=== PATIENT | male | born 1990 | race Caucasian/White ===

== ENCOUNTER 2016-09-17 13:55 | Emergency (ER) | payer OTHER ==
--- NOTE | 2016-09-17 14:30 | EDDOCDS ---
Physician Documentation [facility] Name: Km Reinoso Age: 26 yrs Sex: Male : 1990 Arrival Date: 09/17/2016 Time: 13:55 Bed I10 / 23 Private MD: Megan Panchal J Disposition: 09/17/16 14:21 Discharged to Home/Self Care. Impression: Dental caries, Cracked tooth. - Condition is Stable. - Discharge Instructions: Dental Pain. - Prescriptions for [place] 5- 325 mg Oral Tablet - take 1 tablet by ORAL route every 6 hours As needed MDD: 4 tabs; 20 tablet. - Medication Reconciliation, Local Pharmacy Hours form. - Follow up: Your, Dentist; When: As soon as possible; Reason: Continuance of care. - Problem is an acute exacerbation. - Symptoms are unchanged. Historical: - Allergies: Amoxicillin; PENICILLINS; - Home Meds: 1. Triumeq 600-50-300 mg oral tab 1 tab once daily for HIV Infection - PMHx: HIV; - PSHx: none; - Social history: Smoking status: Patient uses tobacco products, current every day smoker. No barriers to communication noted, The patient speaks fluent Nigerien, Speaks appropriately for age. - Family history: Not pertinent. - : The pt / caregiver states he / she is not on anticoagulants. Home medication list is obtained from the patient. - Exposure Risk Screening:: None identified. Vital Signs: 09/17 13:57 BP 122 / 78; Pulse 62; Resp 18 S; Temp 97.4(O); Pulse Ox 100% on R/A; Weight 54.43 kg / gr2 120 lbs (R); Height 5 ft. 11 in. (180.34 cm) (R); Pain 8/10; 13:57 Body Mass Index 16.74 (54.43 kg, 180.34 cm) gr2 MDM: 14:19 Financial registration complete. lg Signatures: Mary Kay Bolanos, RN RN Miroslvaa Padilla, Reg Reg Erwin Boateng, WIRE STRAIGHTENING MACHINE OPERATOR WIRE STRAIGHTENING MACHINE OPERATOR Zayra Loza RN RN pml MTDD
--- NOTE | 2016-09-17 14:30 | EDDOCDS ---
Nurse's Notes [facility] Name: Km Reinoso Age: 26 yrs Sex: Male : 1990 Arrival Date: 09/17/2016 Time: 13:55 Bed I10 / 23 Private MD: Megan Panchal J Diagnosis: Dental caries;Cracked tooth Presentation: 09/17 14:01 Presenting complaint: Patient states: right upper tooth broke during the night. cant srm eat. Adult Sepsis Screening: The patient does not have new or worsening altered mentation. Patient's respiratory rate is less than 22. Systolic blood pressure is greater than 100. Patient has a qSOFA score of 0- Negative Sepsis Screen. Suicide/Homicide risk assessment- the patient denies having any suicidal and/or homicidal ideations and does not present with any other emotional, behavioral or mental health complaints. Status: Patient is not a customer service analyst or dependent. Transition of care: patient was not received from another setting of care. 14:01 Acuity: ROSA Level 5 [facility] 14:01 Method Of Arrival: Walkin/Carried/Asstd [facility] Triage Assessment: 14:02 General: Appears in no apparent distress, Behavior is appropriate for age, cooperative. srm Pain: Pain currently is 10 out of 10 on a pain scale. HIV screening NA for this visit Offered previously. EENT: Reports pain right upper back tooth pain. Historical: - Allergies: Amoxicillin; PENICILLINS; - Home Meds: 1. Triumeq 600-50-300 mg oral tab 1 tab once daily for HIV Infection - PMHx: HIV; - PSHx: none; - Social history: Smoking status: Patient uses tobacco products, current every day smoker. No barriers to communication noted, The patient speaks fluent Malian, Speaks appropriately for age. - Family history: Not pertinent. - : The pt / caregiver states he / she is not on anticoagulants. Home medication list is obtained from the patient. - Exposure Risk Screening:: None identified. Screenin:27 Screening information is obtained from the patient. Fall risk: No risks identified. pml Assistance ADL's: requires no assistance with activities of daily living. Abuse/DV Screen: The patient / caregiver reports he/she is: not in a situation that causes fear, pain or injury. Nutritional screening: No deficits noted. Advance Directives: Currently, there is no health care proxy. home support is adequate. Assessment: 14:27 General: Appears in no apparent distress, comfortable, Behavior is appropriate for age, pml cooperative. Pain: Location: mouth Pain currently is 10 out of 10 on a pain scale. Neurological: Level of Consciousness is awake, alert, Oriented to person, place, time. Cardiovascular: Capillary refill < 3 seconds. Respiratory: Airway is patent Respiratory pattern is regular, symmetrical. GI: Abdomen is non- distended. Derm: Skin is pink, warm & dry. Vital Signs: 13:57 BP 122 / 78; Pulse 62; Resp 18 S; Temp 97.4(O); Pulse Ox 100% on R/A; Weight 54.43 kg gr2 (R); Height 5 ft. 11 in. (180.34 cm) (R); Pain 8/10; 13:57 Body Mass Index 16.74 (54.43 kg, 180.34 cm) gr2 Vitals: 13:57 Log In Time: September 17, 2016 at 13:57. gr2 ED Course: 13:57 Patient visited by Deandre Ross. gr2 13:57 Megan Panchal is Private Physician. gr2 13:57 Patient moved to Waiting gr2 13:59 Patient visited by Deandre Ross. gr2 13:59 Patient moved to Pre RCE gr2 14:01 Triage Initiated srm 14:12 Erwin Boateng FNP is PHCP. ke 14:12 Patient visited by Erwin Boateng FNP. ke 14:12 Patient visited by Erwin Boateng FNP. ke 14:12 Patient moved to I9 / 22 jo3 14:15 Patient moved to I10 / 23 rn1 14:21 Your, Dentist is Referral Physician. ke 14:27 The patient / caregiver is instructed regarding the plan of care and ED course. Patient pml has correct armband on for positive identification. Placed in gown. Bed in low position. Call light in reach. Side rails up X2. 14:27 No IV's were initiated during this patient's visit. No procedures done that require pml assistance. Order Results: There are currently no results for this order. Outcome: 14:21 Discharge ordered by Provider. ke 14:27 Discharge Assessment: Patient awake, alert and oriented x 3. No cognitive and/or pml functional deficits noted. Patient verbalized understanding of disposition instructions. patient administered narcotics - no. The following High Risk Discharge criteria are identified: None. Discharged to home ambulatory. Condition: good Condition: stable. Discharge instructions given to patient, Instructed on discharge instructions, follow up and referral plans. medication usage, no driving heavy equipment, Demonstrated understanding of instructions, medications, Pt was receptive of discharge instructions/ teaching. Prescriptions given X 1. No special radiology studies were completed. Property sent home with patient. 14:29 Patient left the ED. pml Signatures: Mary Kay Bolanos, RN RN Erwin Ragland, Mamta Kahn RN RN jo3 Zayra Garcia RN RN Deandre León gr2 Rufus Ferrer rn1 NEAL
--- NOTE | 2016-09-19 15:30 | EDDOCDS ---
Physician Documentation [facility] Name: Km Reinoso Age: 26 yrs Sex: Male : 1990 Arrival Date: 09/17/2016 Time: 13:55 Bed I10 / 23 Private MD: Megan Panchal J Disposition: 09/17/16 14:21 Discharged to Home/Self Care. Impression: Dental caries, Cracked tooth. - Condition is Stable. - Discharge Instructions: Dental Pain. - Prescriptions for [place] 5- 325 mg Oral Tablet - take 1 tablet by ORAL route every 6 hours As needed MDD: 4 tabs; 20 tablet. - Medication Reconciliation, Local Pharmacy Hours form. - Follow up: Your, Dentist; When: As soon as possible; Reason: Continuance of care. - Problem is an acute exacerbation. - Symptoms are unchanged. Historical: - Allergies: Amoxicillin; PENICILLINS; - Home Meds: 1. Triumeq 600-50-300 mg oral tab 1 tab once daily for HIV Infection - PMHx: HIV; - PSHx: none; - Social history: Smoking status: Patient uses tobacco products, current every day smoker. No barriers to communication noted, The patient speaks fluent Norwegian, Speaks appropriately for age. - Family history: Not pertinent. - : The pt / caregiver states he / she is not on anticoagulants. Home medication list is obtained from the patient. - Exposure Risk Screening:: None identified. Vital Signs: 09/17 13:57 BP 122 / 78; Pulse 62; Resp 18 S; Temp 97.4(O); Pulse Ox 100% on R/A; Weight 54.43 kg / gr2 120 lbs (R); Height 5 ft. 11 in. (180.34 cm) (R); Pain 8/10; 13:57 Body Mass Index 16.74 (54.43 kg, 180.34 cm) gr2 MDM: 14:19 Financial registration complete. lg 14:42 [facility] Payment Agreement was scanned into [employer] and attached to record. lg 09/18 08:59 T-Sheet-- Draft Copy was scanned into Mlog and attached to record. [facility] Signatures: Mary Kay Bolanos, RN RN Miroslava Padilla, Reg Reg lg Erwin Boateng, FRENCH LECTURERZayra ThorntonRN RN Shannon Shi The chart was reviewed and I authenticate all verbal orders and agree with the evaluation and treatment provided.Attachments: 09/17 14:42 [id number] Payment Agreement lg 09/18 08:59 T-Sheet-- Draft Copy [facility] Chart Complete MTDD
--- NOTE | 2016-09-19 15:30 | EDDOCDS ---
Nurse's Notes [facility] Name: Km Reinoso Age: 26 yrs Sex: Male : 1990 Arrival Date: 09/17/2016 Time: 13:55 Bed I10 / 23 Private MD: Megan Panchal J Diagnosis: Dental caries;Cracked tooth Presentation: 09/17 14:01 Presenting complaint: Patient states: right upper tooth broke during the night. cant srm eat. Adult Sepsis Screening: The patient does not have new or worsening altered mentation. Patient's respiratory rate is less than 22. Systolic blood pressure is greater than 100. Patient has a qSOFA score of 0- Negative Sepsis Screen. Suicide/Homicide risk assessment- the patient denies having any suicidal and/or homicidal ideations and does not present with any other emotional, behavioral or mental health complaints. Status: Patient is not a emergency services dispatcher or dependent. Transition of care: patient was not received from another setting of care. 14:01 Acuity: ROSA Level 5 [facility] 14:01 Method Of Arrival: Walkin/Carried/Asstd [facility] Triage Assessment: 14:02 General: Appears in no apparent distress, Behavior is appropriate for age, cooperative. srm Pain: Pain currently is 10 out of 10 on a pain scale. HIV screening NA for this visit Offered previously. EENT: Reports pain right upper back tooth pain. Historical: - Allergies: Amoxicillin; PENICILLINS; - Home Meds: 1. Triumeq 600-50-300 mg oral tab 1 tab once daily for HIV Infection - PMHx: HIV; - PSHx: none; - Social history: Smoking status: Patient uses tobacco products, current every day smoker. No barriers to communication noted, The patient speaks fluent Lao, Speaks appropriately for age. - Family history: Not pertinent. - : The pt / caregiver states he / she is not on anticoagulants. Home medication list is obtained from the patient. - Exposure Risk Screening:: None identified. Screenin:27 Screening information is obtained from the patient. Fall risk: No risks identified. pml Assistance ADL's: requires no assistance with activities of daily living. Abuse/DV Screen: The patient / caregiver reports he/she is: not in a situation that causes fear, pain or injury. Nutritional screening: No deficits noted. Advance Directives: Currently, there is no health care proxy. home support is adequate. Assessment: 14:27 General: Appears in no apparent distress, comfortable, Behavior is appropriate for age, pml cooperative. Pain: Location: mouth Pain currently is 10 out of 10 on a pain scale. Neurological: Level of Consciousness is awake, alert, Oriented to person, place, time. Cardiovascular: Capillary refill < 3 seconds. Respiratory: Airway is patent Respiratory pattern is regular, symmetrical. GI: Abdomen is non- distended. Derm: Skin is pink, warm & dry. Vital Signs: 13:57 BP 122 / 78; Pulse 62; Resp 18 S; Temp 97.4(O); Pulse Ox 100% on R/A; Weight 54.43 kg gr2 (R); Height 5 ft. 11 in. (180.34 cm) (R); Pain 8/10; 13:57 Body Mass Index 16.74 (54.43 kg, 180.34 cm) gr2 Vitals: 13:57 Log In Time: September 17, 2016 at 13:57. gr2 ED Course: 13:57 Patient visited by Deandre Ross. gr2 13:57 Megan Panchal is Private Physician. gr2 13:57 Patient moved to Waiting gr2 13:59 Patient visited by Deandre Ross. gr2 13:59 Patient moved to Pre RCE gr2 14:01 Triage Initiated srm 14:12 Erwin Boateng FNP is PHCP. ke 14:12 Patient visited by Erwin Boateng FNP. ke 14:12 Patient visited by Erwin Boateng FNP. ke 14:12 Patient moved to I9 / 22 jo3 14:15 Patient moved to I10 / 23 rn1 14:21 Your, Dentist is Referral Physician. ke 14:27 The patient / caregiver is instructed regarding the plan of care and ED course. Patient pml has correct armband on for positive identification. Placed in gown. Bed in low position. Call light in reach. Side rails up X2. 14:27 No IV's were initiated during this patient's visit. No procedures done that require pml assistance. 14:40 Patient name changed from Km\S\\S\Kipke\S\ to Km\S\ \S\Kipke. EDMS 14:42 [facility] Payment Agreement was scanned into [employer] and attached to record. 09/18 08:59 T-Sheet-- Draft Copy was scanned into [employer] and attached to record. [facility] Order Results: There are currently no results for this order. Outcome: 09/17 14:21 Discharge ordered by Provider. 14:27 Discharge Assessment: Patient awake, alert and oriented x 3. No cognitive and/or pml functional deficits noted. Patient verbalized understanding of disposition instructions. patient administered narcotics - no. The following High Risk Discharge criteria are identified: None. Discharged to home ambulatory. Condition: good Condition: stable. Discharge instructions given to patient, Instructed on discharge instructions, follow up and referral plans. medication usage, no driving heavy equipment, Demonstrated understanding of instructions, medications, Pt was receptive of discharge instructions/ teaching. Prescriptions given X 1. No special radiology studies were completed. Property sent home with patient. 14:29 Patient left the ED. pml Signatures: Dispatcher [employer] EDVT Mary Kay Bolanos, RN RN Miroslava Padilla, Anton Reg Erwin Boateng, BOW MAKER MACHINE TENDER BOW MAKER MACHINE TENDER Mamta Benosn RN RN Zayra CruzRN RN Deandre León Robert rn1 Shannon Santo Chart Complete MTDYun
--- NOTE | 2016-09-19 15:30 | EDDOCDS ---
Physician Documentation [facility] Name: Km Reinoso Age: 26 yrs Sex: Male : 1990 Arrival Date: 09/17/2016 Time: 13:55 Bed I10 / 23 Private MD: Megan Panchal J Disposition: 09/17/16 14:21 Discharged to Home/Self Care. Impression: Dental caries, Cracked tooth. - Condition is Stable. - Discharge Instructions: Dental Pain. - Prescriptions for [place] 5- 325 mg Oral Tablet - take 1 tablet by ORAL route every 6 hours As needed MDD: 4 tabs; 20 tablet. - Medication Reconciliation, Local Pharmacy Hours form. - Follow up: Your, Dentist; When: As soon as possible; Reason: Continuance of care. - Problem is an acute exacerbation. - Symptoms are unchanged. Historical: - Allergies: Amoxicillin; PENICILLINS; - Home Meds: 1. Triumeq 600-50-300 mg oral tab 1 tab once daily for HIV Infection - PMHx: HIV; - PSHx: none; - Social history: Smoking status: Patient uses tobacco products, current every day smoker. No barriers to communication noted, The patient speaks fluent Monegasque, Speaks appropriately for age. - Family history: Not pertinent. - : The pt / caregiver states he / she is not on anticoagulants. Home medication list is obtained from the patient. - Exposure Risk Screening:: None identified. Vital Signs: 09/17 13:57 BP 122 / 78; Pulse 62; Resp 18 S; Temp 97.4(O); Pulse Ox 100% on R/A; Weight 54.43 kg / gr2 120 lbs (R); Height 5 ft. 11 in. (180.34 cm) (R); Pain 8/10; 13:57 Body Mass Index 16.74 (54.43 kg, 180.34 cm) gr2 MDM: 14:19 Financial registration complete. lg 14:42 [facility] Payment Agreement was scanned into [employer] and attached to record. lg 09/18 08:59 T-Sheet-- Draft Copy was scanned into [employer] and attached to record. [facility] Signatures: Mary Kay Bolanos, RN RN Miroslava Padilla, Reg Reg lg Erwin Boateng, MANAGER ANALYTICALZayra ThorntonRN RN Shannon Shi The chart was reviewed and I authenticate all verbal orders and agree with the evaluation and treatment provided.Attachments: 09/17 14:42 [facility] Payment Agreement lg 09/18 08:59 T-Sheet-- Draft Copy [facility] Chart Complete MTDD
== END 2016-09-17 14:29 | disposition home or self-care (01) ==
LOC: M ED 13:55
DX: K08.89 Other specified disorders of teeth and supporting structures (principal); B20 Human immunodeficiency virus [HIV] disease; Z72.0 Tobacco use; Z79.899 Other long term (current) drug therapy; Z88.0 Allergy status to penicillin

== ENCOUNTER 2016-09-23 19:29 | Emergency (ER) | payer OTHER ==
[2016-09-23] MEDS ORDERED: NORCO, ANEXSIA 5/325MG TABLET (HYDROcodone/ACETAMINOPHEN) As Ordered ONE (20:57)
[2016-09-23] MEDS ORDERED: CLINDAMYCIN 150 MG CAP As Ordered ONE (20:57)
--- NOTE | 2016-09-23 21:04 | EDDOCDS ---
Nurse's Notes [facility] Name: Km Reinoso Age: 26 yrs Sex: Male : 1990 Arrival Date: 09/23/2016 Time: 19:29 Bed TR7 Private MD: Megan Panchal J Diagnosis: Atypical facial pain-dental caries Presentation: 09/23 19:52 Presenting complaint: Patient states: broken right upper tooth pain since tuesday. Adult rs3 Sepsis Screening: The patient does not have new or worsening altered mentation. Patient's respiratory rate is less than 22. Systolic blood pressure is greater than 100. Patient has a qSOFA score of 0- Negative Sepsis Screen. Suicide/Homicide risk assessment- the patient denies having any suicidal and/or homicidal ideations and does not present with any other emotional, behavioral or mental health complaints. Status: Patient is not a floor worker well service or dependent. Transition of care: patient was not received from another setting of care. 19:52 Acuity: ROSA Level 5 rs3 19:52 Method Of Arrival: Walkin/Carried/Asstd rs3 Triage Assessment: 19:53 General: Appears in no apparent distress. Pain: Location: mouth. HIV screening NA for rs3 this visit Offered previously. Historical: - Allergies: Amoxicillin (Rash); PENICILLINS (Rash); - Home Meds: 1. Triumeq 600-50-300 mg oral tab 1 tab once daily for HIV Infection - PMHx: HIV; - PSHx: none; - Social history: Smoking status: Patient uses tobacco products, light tobacco smoker. No barriers to communication noted, The patient speaks fluent Peruvian. - Family history: Not pertinent. - : The pt / caregiver states he / she is not on anticoagulants. Home medication list is obtained from the patient. - Exposure Risk Screening:: None identified. Screenin:58 Screening information is obtained from the patient. Fall risk: No risks identified. jo3 Assistance ADL's: requires no assistance with activities of daily living. Abuse/DV Screen: The patient / caregiver reports he/she is: not in a situation that causes fear, pain or injury. Nutritional screening: No deficits noted. Advance Directives: Currently, there is There is no active DNR order. home support is adequate. Assessment: 21:01 General: Appears in no apparent distress, comfortable, Behavior is appropriate for age, jo3 cooperative. Neurological: Level of Consciousness is awake, alert. Respiratory: No deficits noted. Airway is patent Respiratory effort is even, unlabored. Derm: Skin is pink, warm & dry. Vital Signs: 20:00 BP 132 / 73; Pulse 68; Resp 18; Temp 97.8; Pulse Ox 99% ; Weight 54.43 kg; Height 5 ft. elp 11 in. (180.34 cm); Pain 10/10; 20:00 Body Mass Index 16.74 (54.43 kg, 180.34 cm) elp Vitals: 19:53 Log In Time: September 23, 2016 at 19:29. rs3 ED Course: 19:31 Patient visited by Laury Collier, OVIDIO. rs6 19:31 Megan Panchal is Private Physician. rs6 19:31 Patient moved to Waiting rs6 19:33 Patient moved to Pre RCE rs6 19:53 Triage Initiated rs3 20:00 Patient visited by Jyothi Melendez, OVIDIO. elp 20:34 Patient moved to Triage 2 ct3 20:44 Luis Miguel Tamez [facility]-C [facility] cc10 20:44 Leonard Reyna DO is Attending Physician. cc10 20:45 Patient visited by Luis Miguel Tamez PA-C. cc10 20:45 Patient visited by Luis Miguel Tamez PA-C. cc10 20:58 The patient / caregiver is instructed regarding the plan of care and ED course. jo3 20:58 No IV's were initiated during this patient's visit. No procedures done that require jo3 assistance. 21:01 Patient moved to 2 ct3 21:01 [facility] Payment Agreement was scanned into [employer] and attached to record. gjb 21:01 Patient moved to TR7 ct3 Administered Medications: 21:01 Drug: HYDROcodone-acetaminophen 1 tabs [hydrocodone 5 mg-acetaminophen 325 mg tablet (1 jo3 tabs)] Route: PO; 21:01 Drug: Clindamycin 300 mg [clindamycin 150 mg capsule (2 caps)] Route: PO; jo3 Order Results: There are currently no results for this order. Outcome: 20:49 Discharge ordered by Provider. cc10 20:58 Discharge Assessment: Patient awake, alert and oriented x 3. No cognitive and/or jo3 functional deficits noted. Patient verbalized understanding of disposition instructions. patient administered narcotics - yes. Pt provided with safe discharge. The following High Risk Discharge criteria are identified: None. Discharged to home ambulatory, with friend. Condition: stable Condition: improved. Discharge instructions given to patient, Instructed on discharge instructions, follow up and referral plans. medication usage, Demonstrated understanding of instructions, medications, Pt was receptive of discharge instructions/ teaching. Prescriptions given X 2. No special radiology studies were completed. Property sent home with patient. 21:03 Patient left the ED. jo3 Signatures: Mamta Bean,RN RN jo3 Mackenzie,Tamara,RN RN rs3 Yessy Gaona, TECHNICIAN SUPPORT ENGINEER TECHNICIAN SUPPORT ENGINEER ct3 Jyothi Melendez, TECHNICIAN SUPPORT ENGINEER TECHNICIAN SUPPORT ENGINEER elp Luis Miguel Tamez, PA-C PA-C cc10 Laury Collier, TECHNICIAN SUPPORT ENGINEER TECHNICIAN SUPPORT ENGINEER rs6 Joanne Brown MTDD
--- NOTE | 2016-09-23 21:04 | EDDOCDS ---
Physician Documentation [facility] Name: Km Reinoso Age: 26 yrs Sex: Male : 1990 Arrival Date: 09/23/2016 Time: 19:29 Bed TR7 Private MD: Megan Panchal J Disposition: 09/23/16 20:49 Discharged to Home/Self Care. Impression: Atypical facial pain - dental caries. - Condition is Stable. - Discharge Instructions: Dental Pain. - Prescriptions for Clindamycin HCl 300 mg Oral Capsule - take 1 capsule by ORAL route every 6 hours; 40 capsule. [place] 5- 325 mg Oral Tablet - take 1 tablet by ORAL route every 6 hours As needed MDD: 4 tabs; 20 tablet. - Medication Reconciliation, Local Pharmacy Hours form. - Follow up: Private Physician; When: Call to arrange an appointment; Reason: Wound/Symptom Recheck, Recheck today's complaints, Worsening of conditions, Continuance of care. - Problem is an ongoing problem. - Symptoms are unchanged. Historical: - Allergies: Amoxicillin (Rash); PENICILLINS (Rash); - Home Meds: 1. Triumeq 600-50-300 mg oral tab 1 tab once daily for HIV Infection - PMHx: HIV; - PSHx: none; - Social history: Smoking status: Patient uses tobacco products, light tobacco smoker. No barriers to communication noted, The patient speaks fluent Comoran. - Family history: Not pertinent. - : The pt / caregiver states he / she is not on anticoagulants. Home medication list is obtained from the patient. - Exposure Risk Screening:: None identified. Vital Signs: 09/23 20:00 BP 132 / 73; Pulse 68; Resp 18; Temp 97.8; Pulse Ox 99% ; Weight 54.43 kg / 120 lbs; elp Height 5 ft. 11 in. (180.34 cm); Pain 10/10; 20:00 Body Mass Index 16.74 (54.43 kg, 180.34 cm) elp MDM: 20:50 HYDROcodone-acetaminophen 5 mg-325 mg 1 tabs PO once ordered. cc10 20:50 Clindamycin 300 mg PO once ordered. cc10 21:01 [facility] Payment Agreement was scanned into [email or web address] and attached to record. ashleigh 21:01 Financial registration complete. ashleigh Administered Medications: 21:01 Drug: HYDROcodone-acetaminophen 1 tabs [hydrocodone 5 mg-acetaminophen 325 mg tablet (1 jo3 tabs)] Route: PO; 21:01 Drug: Clindamycin 300 mg [clindamycin 150 mg capsule (2 caps)] Route: PO; jo3 Signatures: Mamta Bean RN RN jo3 Tamara Mann RN RN rs3 Luis Miguel Tamez PAVandanaC PA-C cc10 Joanne Brown The chart was reviewed and I authenticate all verbal orders and agree with the evaluation and treatment provided.Attachments: 21:01 [facility] Payment Agreement ashleigh MTDD
--- NOTE | 2016-09-25 22:04 | EDDOCDS ---
Physician Documentation [facility] Name: Km Reinoso Age: 26 yrs Sex: Male : 1990 Arrival Date: 09/23/2016 Time: 19:29 Bed TR7 Private MD: Megan Panchal J Disposition: 09/23/16 20:49 Discharged to Home/Self Care. Impression: Atypical facial pain - dental caries. - Condition is Stable. - Discharge Instructions: Dental Pain. - Prescriptions for Clindamycin HCl 300 mg Oral Capsule - take 1 capsule by ORAL route every 6 hours; 40 capsule. [place] 5- 325 mg Oral Tablet - take 1 tablet by ORAL route every 6 hours As needed MDD: 4 tabs; 20 tablet. - Medication Reconciliation, Local Pharmacy Hours form. - Follow up: Private Physician; When: Call to arrange an appointment; Reason: Wound/Symptom Recheck, Recheck today's complaints, Worsening of conditions, Continuance of care. - Problem is an ongoing problem. - Symptoms are unchanged. Historical: - Allergies: Amoxicillin (Rash); PENICILLINS (Rash); - Home Meds: 1. Triumeq 600-50-300 mg oral tab 1 tab once daily for HIV Infection - PMHx: HIV; - PSHx: none; - Social history: Smoking status: Patient uses tobacco products, light tobacco smoker. No barriers to communication noted, The patient speaks fluent Belizean. - Family history: Not pertinent. - : The pt / caregiver states he / she is not on anticoagulants. Home medication list is obtained from the patient. - Exposure Risk Screening:: None identified. Vital Signs: 09/23 20:00 BP 132 / 73; Pulse 68; Resp 18; Temp 97.8; Pulse Ox 99% ; Weight 54.43 kg / 120 lbs; elp Height 5 ft. 11 in. (180.34 cm); Pain 10/10; 20:00 Body Mass Index 16.74 (54.43 kg, 180.34 cm) elp MDM: 20:50 HYDROcodone-acetaminophen 5 mg-325 mg 1 tabs PO once ordered. cc10 20:50 Clindamycin 300 mg PO once ordered. cc10 21:01 [facility] Payment Agreement was scanned into [employer] and attached to record. [facility] 21: Financial registration complete. gjb 09/24 11:14 T-Sheet-- Draft Copy was scanned into [employer] and attached to record. gb Administered Medications: 09/23 21:01 Drug: HYDROcodone-acetaminophen 1 tabs [hydrocodone 5 mg-acetaminophen 325 mg tablet (1 jo3 tabs)] Route: PO; 21:01 Drug: Clindamycin 300 mg [clindamycin 150 mg capsule (2 caps)] Route: PO; jo3 Signatures: Izabel Sigala, Reg Reg gb Mamta Bean RN RN jo3 Tamara Mann RN RN rs3 Luis Miguel Tamez PA-C PA-C cc10 Joanne Brown The chart was reviewed and I authenticate all verbal orders and agree with the evaluation and treatment provided.Attachments: 21:01 [facility] Payment Agreement gjb 09/24 11:14 T-Sheet-- Draft Copy gb Chart Complete MTDD
--- NOTE | 2016-09-25 22:04 | EDDOCDS ---
Physician Documentation [facility] Name: Km Reinoso Age: 26 yrs Sex: Male : 1990 Arrival Date: 09/23/2016 Time: 19:29 Bed TR7 Private MD: Megan Panchal J Disposition: 09/23/16 20:49 Discharged to Home/Self Care. Impression: Atypical facial pain - dental caries. - Condition is Stable. - Discharge Instructions: Dental Pain. - Prescriptions for Clindamycin HCl 300 mg Oral Capsule - take 1 capsule by ORAL route every 6 hours; 40 capsule. [place] 5- 325 mg Oral Tablet - take 1 tablet by ORAL route every 6 hours As needed MDD: 4 tabs; 20 tablet. - Medication Reconciliation, Local Pharmacy Hours form. - Follow up: Private Physician; When: Call to arrange an appointment; Reason: Wound/Symptom Recheck, Recheck today's complaints, Worsening of conditions, Continuance of care. - Problem is an ongoing problem. - Symptoms are unchanged. Historical: - Allergies: Amoxicillin (Rash); PENICILLINS (Rash); - Home Meds: 1. Triumeq 600-50-300 mg oral tab 1 tab once daily for HIV Infection - PMHx: HIV; - PSHx: none; - Social history: Smoking status: Patient uses tobacco products, light tobacco smoker. No barriers to communication noted, The patient speaks fluent Moroccan. - Family history: Not pertinent. - : The pt / caregiver states he / she is not on anticoagulants. Home medication list is obtained from the patient. - Exposure Risk Screening:: None identified. Vital Signs: 09/23 20:00 BP 132 / 73; Pulse 68; Resp 18; Temp 97.8; Pulse Ox 99% ; Weight 54.43 kg / 120 lbs; elp Height 5 ft. 11 in. (180.34 cm); Pain 10/10; 20:00 Body Mass Index 16.74 (54.43 kg, 180.34 cm) elp MDM: 20:50 HYDROcodone-acetaminophen 5 mg-325 mg 1 tabs PO once ordered. cc10 20:50 Clindamycin 300 mg PO once ordered. cc10 21:01 [facility] Payment Agreement was scanned into [employer] and attached to record. [facility] 21: Financial registration complete. gjb 09/24 11:14 T-Sheet-- Draft Copy was scanned into [employer] and attached to record. gb Administered Medications: 09/23 21:01 Drug: HYDROcodone-acetaminophen 1 tabs [hydrocodone 5 mg-acetaminophen 325 mg tablet (1 jo3 tabs)] Route: PO; 21:01 Drug: Clindamycin 300 mg [clindamycin 150 mg capsule (2 caps)] Route: PO; jo3 Signatures: Izabel Sigala, Reg Reg gb Mamta Bean RN RN jo3 Tamara Mann RN RN rs3 Luis Miguel Tamez PA-C PA-C cc10 Joanne Brown The chart was reviewed and I authenticate all verbal orders and agree with the evaluation and treatment provided.Attachments: 21:01 [facility] Payment Agreement gjb 09/24 11:14 T-Sheet-- Draft Copy gb Chart Complete MTDD
--- NOTE | 2016-09-25 22:04 | EDDOCDS ---
Nurse's Notes [facility] Name: Km Reinoso Age: 26 yrs Sex: Male : 1990 Arrival Date: 09/23/2016 Time: 19:29 Bed TR7 Private MD: Megan Panchal J Diagnosis: Atypical facial pain-dental caries Presentation: 09/23 19:52 Presenting complaint: Patient states: broken right upper tooth pain since tuesday. Adult rs3 Sepsis Screening: The patient does not have new or worsening altered mentation. Patient's respiratory rate is less than 22. Systolic blood pressure is greater than 100. Patient has a qSOFA score of 0- Negative Sepsis Screen. Suicide/Homicide risk assessment- the patient denies having any suicidal and/or homicidal ideations and does not present with any other emotional, behavioral or mental health complaints. Status: Patient is not a field service representative or dependent. Transition of care: patient was not received from another setting of care. 19:52 Acuity: ROSA Level 5 rs3 19:52 Method Of Arrival: Walkin/Carried/Asstd rs3 Triage Assessment: 19:53 General: Appears in no apparent distress. Pain: Location: mouth. HIV screening NA for rs3 this visit Offered previously. Historical: - Allergies: Amoxicillin (Rash); PENICILLINS (Rash); - Home Meds: 1. Triumeq 600-50-300 mg oral tab 1 tab once daily for HIV Infection - PMHx: HIV; - PSHx: none; - Social history: Smoking status: Patient uses tobacco products, light tobacco smoker. No barriers to communication noted, The patient speaks fluent Central African. - Family history: Not pertinent. - : The pt / caregiver states he / she is not on anticoagulants. Home medication list is obtained from the patient. - Exposure Risk Screening:: None identified. Screenin:58 Screening information is obtained from the patient. Fall risk: No risks identified. jo3 Assistance ADL's: requires no assistance with activities of daily living. Abuse/DV Screen: The patient / caregiver reports he/she is: not in a situation that causes fear, pain or injury. Nutritional screening: No deficits noted. Advance Directives: Currently, there is There is no active DNR order. home support is adequate. Assessment: 21:01 General: Appears in no apparent distress, comfortable, Behavior is appropriate for age, jo3 cooperative. Neurological: Level of Consciousness is awake, alert. Respiratory: No deficits noted. Airway is patent Respiratory effort is even, unlabored. Derm: Skin is pink, warm & dry. Vital Signs: 20:00 BP 132 / 73; Pulse 68; Resp 18; Temp 97.8; Pulse Ox 99% ; Weight 54.43 kg; Height 5 ft. elp 11 in. (180.34 cm); Pain 10/10; 20:00 Body Mass Index 16.74 (54.43 kg, 180.34 cm) elp Vitals: 19:53 Log In Time: September 23, 2016 at 19:29. rs3 ED Course: 19:31 Patient visited by Laury Collier, OVIDIO. rs6 19:31 Megan Panchal is Private Physician. rs6 19:31 Patient moved to Waiting rs6 19:33 Patient moved to Pre RCE rs6 19:53 Triage Initiated rs3 20:00 Patient visited by Jyothi Melendez, OVIDIO. elp 20:34 Patient moved to Triage 2 ct3 20:44 Luis Miguel Tamez [facility]-C [facility] cc10 20:44 Leonard Reyna DO is Attending Physician. cc10 20:45 Patient visited by Luis Miguel Tamez PA-C. cc10 20:45 Patient visited by Luis Miguel Tamez PA-C. cc10 20:58 The patient / caregiver is instructed regarding the plan of care and ED course. jo3 20:58 No IV's were initiated during this patient's visit. No procedures done that require jo3 assistance. 21:01 Patient moved to TR2 ct3 21:01 [facility] Payment Agreement was scanned into [employer] and attached to record. gjb 21:01 Patient moved to TR7 ct3 21:21 Patient name changed from Km\S\\S\Kipke\S\ to Km\S\ \S\Kipke. EDMS 09/24 11:14 T-Sheet-- Draft Copy was scanned into [employer] and attached to record. gb Administered Medications: 09/23 21:01 Drug: HYDROcodone-acetaminophen 1 tabs [hydrocodone 5 mg-acetaminophen 325 mg tablet (1 jo3 tabs)] Route: PO; 21:01 Drug: Clindamycin 300 mg [clindamycin 150 mg capsule (2 caps)] Route: PO; jo3 Order Results: There are currently no results for this order. Outcome: 20:49 Discharge ordered by Provider. cc10 20:58 Discharge Assessment: Patient awake, alert and oriented x 3. No cognitive and/or jo3 functional deficits noted. Patient verbalized understanding of disposition instructions. patient administered narcotics - yes. Pt provided with safe discharge. The following High Risk Discharge criteria are identified: None. Discharged to home ambulatory, with friend. Condition: stable Condition: improved. Discharge instructions given to patient, Instructed on discharge instructions, follow up and referral plans. medication usage, Demonstrated understanding of instructions, medications, Pt was receptive of discharge instructions/ teaching. Prescriptions given X 2. No special radiology studies were completed. Property sent home with patient. 21:03 Patient left the ED. jo3 Signatures: Dispatcher [employer] EDMS Izabel Sigala, Anton Reg Mamta AsencioRN RN jo3 Tamara Mann RN RN rs3 Yessy Gaona, GRAPHIC MANAGER GRAPHIC MANAGER ct3 Jyothi Melendez, GRAPHIC MANAGER GRAPHIC MANAGER elp Luis Miguel Tamez, PAAlexsander PAVandanaC cc10 Laury Collier, GRAPHIC MANAGER GRAPHIC MANAGER rs6 Joanne Brown Chart Complete MTDD
== END 2016-09-23 21:03 | disposition home or self-care (01) ==
LOC: M ED 19:29
DX: K02.9 Dental caries, unspecified (principal); B20 Human immunodeficiency virus [HIV] disease; Z79.899 Other long term (current) drug therapy; F17.210 Nicotine dependence, cigarettes, uncomplicated

== ENCOUNTER 2016-10-03 17:25 | Emergency (ER) | payer OTHER ==
[2016-10-03] MEDS ORDERED: traMADol 50 MG TAB As Ordered ONE (18:18)
--- NOTE | 2016-10-03 18:26 | EDDOCDS ---
Physician Documentation [facility] Name: Km Reinoso Age: 26 yrs Sex: Male : 1990 Arrival Date: 10/03/2016 Time: 17:25 Bed TR7 Private MD: Megan Panchal J Disposition: 10/03/16 18:15 Discharged to Home/Self Care. Impression: Other acute postprocedural pain - DENTAL EXTRACTION. - Condition is Stable. - Discharge Instructions: Dental Pain. - Medication Reconciliation, Local Pharmacy Hours form. - Follow up: Your, Dentist; When: Tomorrow; Reason: Recheck today's complaints, Continuance of care. - Problem is new. - Symptoms have improved. - Notes: CONTINUE WITH THE CLINDAMYCIN, USE ULTRAM INSTRUCTED, FOLLOW UP WITH YOUR ORAL SURGEON TOMORROW Historical: - Allergies: Amoxicillin (Rash); PENICILLINS (Rash); - Home Meds: 1. clindamycin HCl 300 mg Oral cap every 6 hours 2. Triumeq 600-50-300 mg oral tab 1 tab once daily for HIV Infection - PMHx: HIV; - PSHx: none; - Social history: Smoking status: Patient uses tobacco products, light tobacco smoker. No barriers to communication noted, The patient speaks fluent Upper Sorbian. - Family history: Not pertinent. - : The pt / caregiver states he / she is not on anticoagulants. Home medication list is obtained from the patient. - Exposure Risk Screening:: None identified. Vital Signs: 10/03 17:27 BP 128 / 76 RA Sitting (auto/reg); Pulse 119; Resp 18; Temp 97.1(O); Pulse Ox 98% on bnb R/A; Weight 54.43 kg / 120 lbs; Height 5 ft. 11 in. (180.34 cm); Pain 10/10; 18:19 BP 119 / 76; Pulse 68; Resp 16; Temp 98.6(TE); Pulse Ox 97% on R/A; Pain 10/10; ar3 17:27 Body Mass Index 16.74 (54.43 kg, 180.34 cm) bnb MDM: 18:15 Recheck Vital Signs, perform reassessment and enter into [employer] ordered. ck7 18:15 traMADol 50mg- 4 pack 1 packets PO Per package directions; Dispense with patient. Take ck7 per package instructions. ordered. 18:24 [facility] Payment Agreement was scanned into [employer] and attached to record. jp5 18:24 Financial registration complete. jp5 Administered Medications: 18:20 Drug: traMADol 50mg- 4 pack 1 packets [tramadol 50 mg tablet (1 tabs)] {Co-Signature: pml raniejr (Constance Ross RN).} Route: PO; 18:22 Follow up: Response: Med's dispensed home pml Signatures: Tamara Mann,RN RN rs3 Zayra GarciaRN RN pml Merrill Tony, RPA-C RPA-Cck7 Neftali Gonzalez jp5 Constance kemp The chart was reviewed and I authenticate all verbal orders and agree with the evaluation and treatment provided.Attachments: 18:24 [facility] Payment Agreement jp5 MTDD
--- NOTE | 2016-10-03 18:26 | EDDOCDS ---
Nurse's Notes [facility] Name: Km Reinoso Age: 26 yrs Sex: Male : 1990 Arrival Date: 10/03/2016 Time: 17:25 Bed TR7 Private MD: Megan Panchal J Diagnosis: Other acute postprocedural pain-DENTAL EXTRACTION Presentation: 10/03 17:27 Presenting complaint: Patient states: right cheek pain. had 3 upper molar extraction on rs3 Tuesday. increased pain for 2 days. Adult Sepsis Screening: The patient does not have new or worsening altered mentation. Patient's respiratory rate is less than 22. Systolic blood pressure is greater than 100. Patient has a qSOFA score of 0- Negative Sepsis Screen. Suicide/Homicide risk assessment- the patient denies having any suicidal and/or homicidal ideations and does not present with any other emotional, behavioral or mental health complaints. Status: Patient is not a insurance customer service specialist or dependent. Transition of care: patient was not received from another setting of care. 17:27 Acuity: ROSA Level 5 rs3 17:27 Method Of Arrival: Walkin/Carried/Asstd rs3 Triage Assessment: 17:29 General: Appears in no apparent distress. Pain: Location: mouth. HIV screening NA for rs3 this visit Offered previously. EENT: Reports pain Pain is 7 out of 10 on a pain scale. Historical: - Allergies: Amoxicillin (Rash); PENICILLINS (Rash); - Home Meds: 1. clindamycin HCl 300 mg Oral cap every 6 hours 2. Triumeq 600-50-300 mg oral tab 1 tab once daily for HIV Infection - PMHx: HIV; - PSHx: none; - Social history: Smoking status: Patient uses tobacco products, light tobacco smoker. No barriers to communication noted, The patient speaks fluent Japanese. - Family history: Not pertinent. - : The pt / caregiver states he / she is not on anticoagulants. Home medication list is obtained from the patient. - Exposure Risk Screening:: None identified. Screenin:21 Screening information is obtained from the patient. Fall risk: No risks identified. pml Assistance ADL's: requires no assistance with activities of daily living. Abuse/DV Screen: The patient / caregiver reports he/she is: not in a situation that causes fear, pain or injury. Nutritional screening: No deficits noted. Advance Directives: Currently, there is no health care proxy. home support is adequate. Assessment: 18:21 General: Appears in no apparent distress, comfortable, Behavior is appropriate for age, pml cooperative. Neurological: Level of Consciousness is awake, alert, Oriented to person, place, time. EENT: Reports pain in mouth. Cardiovascular: Capillary refill < 3 seconds. Respiratory: Airway is patent Respiratory effort is even, unlabored. GI: Abdomen is flat, non- distended. Derm: Skin is pink, warm & dry. Vital Signs: 17:27 BP 128 / 76 RA Sitting (auto/reg); Pulse 119; Resp 18; Temp 97.1(O); Pulse Ox 98% on bnb R/A; Weight 54.43 kg; Height 5 ft. 11 in. (180.34 cm); Pain 10/10; 18:19 BP 119 / 76; Pulse 68; Resp 16; Temp 98.6(TE); Pulse Ox 97% on R/A; Pain 10/10; ar3 17:27 Body Mass Index 16.74 (54.43 kg, 180.34 cm) [facility] Vitals: 17:27 Log In Time: October 03, 2016 at 17:25. b ED Course: 17:26 Patient visited by Shayy Tinoco PCA. bnb 17:26 Patient moved to Waiting bnb 17:27 eMgan Panchal is Private Physician. bnb 17:28 Patient moved to Pre RCE bnb 17:28 Triage Initiated rs3 17:38 Patient moved to Triage 2 ar3 18:04 Merrill Tony RPA-C [facility]. ck7 18:04 Guy Hui MD is Attending Physician. ck7 18:04 Patient visited by Merrill Tony RPA-C. ck7 18:15 Gordon Khant is Referral Physician. ck7 18:20 Patient visited by Nicole Link PCA. ar3 18:21 Patient moved to TR7 ar3 18:21 The patient / caregiver is instructed regarding the plan of care and ED course. Patient pml has correct armband on for positive identification. Bed in low position. Call light in reach. 18:21 No IV's were initiated during this patient's visit. No procedures done that require pml assistance. 18:22 Patient name changed from Km\S\\S\Kipke\S\ to Km\S\ \S\Kipke. EDMS 18:24 [facility] Payment Agreement was scanned into [employer] and attached to record. jp5 Administered Medications: 18:20 Drug: traMADol 50mg- 4 pack 1 packets [tramadol 50 mg tablet (1 tabs)] {Co-Signature: pml jjr (Constance Ross RN).} Route: PO; 18:22 Follow up: Response: Med's dispensed home pml Order Results: There are currently no results for this order. Outcome: 18:15 Discharge ordered by Provider. ck7 18:21 Discharge Assessment: Patient awake, alert and oriented x 3. No cognitive and/or pml functional deficits noted. Patient verbalized understanding of disposition instructions. Discharge Assessment: patient administered narcotics - no. The following High Risk Discharge criteria are identified: None. Discharged to home ambulatory. Condition: good Condition: stable. Discharge instructions given to patient, Instructed on discharge instructions, follow up and referral plans. medication usage, no driving heavy equipment, Demonstrated understanding of instructions, medications, Pt was receptive of discharge instructions/ teaching. Prescriptions given X 1. No special radiology studies were completed. Property sent home with patient. 18:26 Patient left the ED. pml Signatures: Dispatcher [employer] EDMS Tamara Mann,RN RN rs3 Nicole Link, PRODUCTION DEPARTMENT SUPERVISOR PRODUCTION DEPARTMENT SUPERVISOR ar3 Zayra Garcia RN RN pml Merrill Tony, RPA-C RPA-Cck7 Neftali Gonzalez jp5 Shayy Tinoco, PRODUCTION DEPARTMENT SUPERVISOR PRODUCTION DEPARTMENT SUPERVISOR bnb Constance Ross RN jjjames MTDD
--- NOTE | 2016-10-05 19:27 | EDDOCDS ---
Physician Documentation [facility] Name: Km Reinoso Age: 26 yrs Sex: Male : 1990 Arrival Date: 10/03/2016 Time: 17:25 Bed TR7 Private MD: Megan Panchal J Disposition: 10/03/16 18:15 Discharged to Home/Self Care. Impression: Other acute postprocedural pain - DENTAL EXTRACTION. - Condition is Stable. - Discharge Instructions: Dental Pain. - Medication Reconciliation, Local Pharmacy Hours form. - Follow up: Your, Dentist; When: Tomorrow; Reason: Recheck today's complaints, Continuance of care. - Problem is new. - Symptoms have improved. - Notes: CONTINUE WITH THE CLINDAMYCIN, USE ULTRAM INSTRUCTED, FOLLOW UP WITH YOUR ORAL SURGEON TOMORROW Historical: - Allergies: Amoxicillin (Rash); PENICILLINS (Rash); - Home Meds: 1. clindamycin HCl 300 mg Oral cap every 6 hours 2. Triumeq 600-50-300 mg oral tab 1 tab once daily for HIV Infection - PMHx: HIV; - PSHx: none; - Social history: Smoking status: Patient uses tobacco products, light tobacco smoker. No barriers to communication noted, The patient speaks fluent Malay. - Family history: Not pertinent. - : The pt / caregiver states he / she is not on anticoagulants. Home medication list is obtained from the patient. - Exposure Risk Screening:: None identified. Vital Signs: 10/03 17:27 BP 128 / 76 RA Sitting (auto/reg); Pulse 119; Resp 18; Temp 97.1(O); Pulse Ox 98% on bnb R/A; Weight 54.43 kg / 120 lbs; Height 5 ft. 11 in. (180.34 cm); Pain 10/10; 18:19 BP 119 / 76; Pulse 68; Resp 16; Temp 98.6(TE); Pulse Ox 97% on R/A; Pain 10/10; ar3 17:27 Body Mass Index 16.74 (54.43 kg, 180.34 cm) bnb MDM: 18:15 Recheck Vital Signs, perform reassessment and enter into [employer] ordered. ck7 18:15 traMADol 50mg- 4 pack 1 packets PO Per package directions; Dispense with patient. Take ck7 per package instructions. ordered. 18:24 [facility] Payment Agreement was scanned into [employer] and attached to record. jp5 18:24 Financial registration complete. jp5 10/04 12:30 T-Sheet-- Draft Copy was scanned into [employer] and attached to record. gb Administered Medications: 10/03 18:20 Drug: traMADol 50mg- 4 pack 1 packets [tramadol 50 mg tablet (1 tabs)] {Co-Signature: pml rainejr (Constance Ross RN).} Route: PO; 18:22 Follow up: Response: Med's dispensed home pml Signatures: Izabel Sigala, Reg Reg gb Tamara MannRN RN rs3 Zayra GarciaRN RN pml Merrill Tony, RPA-C RPA-Cck7 Neftali Gonzalez jp5 Constance nijjames The chart was reviewed and I authenticate all verbal orders and agree with the evaluation and treatment provided.Attachments: 18:24 [facility] Payment Agreement jp5 10/04 12:30 T-Sheet-- Draft Copy gb Chart Complete MTDD
--- NOTE | 2016-10-05 19:27 | EDDOCDS ---
Nurse's Notes [facility] Name: Km Reinoso Age: 26 yrs Sex: Male : 1990 Arrival Date: 10/03/2016 Time: 17:25 Bed TR7 Private MD: Megan Panchal J Diagnosis: Other acute postprocedural pain-DENTAL EXTRACTION Presentation: 10/03 17:27 Presenting complaint: Patient states: right cheek pain. had 3 upper molar extraction on rs3 Tuesday. increased pain for 2 days. Adult Sepsis Screening: The patient does not have new or worsening altered mentation. Patient's respiratory rate is less than 22. Systolic blood pressure is greater than 100. Patient has a qSOFA score of 0- Negative Sepsis Screen. Suicide/Homicide risk assessment- the patient denies having any suicidal and/or homicidal ideations and does not present with any other emotional, behavioral or mental health complaints. Status: Patient is not a transportation services representative or dependent. Transition of care: patient was not received from another setting of care. 17:27 Acuity: ROSA Level 5 rs3 17:27 Method Of Arrival: Walkin/Carried/Asstd rs3 Triage Assessment: 17:29 General: Appears in no apparent distress. Pain: Location: mouth. HIV screening NA for rs3 this visit Offered previously. EENT: Reports pain Pain is 7 out of 10 on a pain scale. Historical: - Allergies: Amoxicillin (Rash); PENICILLINS (Rash); - Home Meds: 1. clindamycin HCl 300 mg Oral cap every 6 hours 2. Triumeq 600-50-300 mg oral tab 1 tab once daily for HIV Infection - PMHx: HIV; - PSHx: none; - Social history: Smoking status: Patient uses tobacco products, light tobacco smoker. No barriers to communication noted, The patient speaks fluent Maori. - Family history: Not pertinent. - : The pt / caregiver states he / she is not on anticoagulants. Home medication list is obtained from the patient. - Exposure Risk Screening:: None identified. Screenin:21 Screening information is obtained from the patient. Fall risk: No risks identified. pml Assistance ADL's: requires no assistance with activities of daily living. Abuse/DV Screen: The patient / caregiver reports he/she is: not in a situation that causes fear, pain or injury. Nutritional screening: No deficits noted. Advance Directives: Currently, there is no health care proxy. home support is adequate. Assessment: 18:21 General: Appears in no apparent distress, comfortable, Behavior is appropriate for age, pml cooperative. Neurological: Level of Consciousness is awake, alert, Oriented to person, place, time. EENT: Reports pain in mouth. Cardiovascular: Capillary refill < 3 seconds. Respiratory: Airway is patent Respiratory effort is even, unlabored. GI: Abdomen is flat, non- distended. Derm: Skin is pink, warm & dry. Vital Signs: 17:27 BP 128 / 76 RA Sitting (auto/reg); Pulse 119; Resp 18; Temp 97.1(O); Pulse Ox 98% on bnb R/A; Weight 54.43 kg; Height 5 ft. 11 in. (180.34 cm); Pain 10/10; 18:19 BP 119 / 76; Pulse 68; Resp 16; Temp 98.6(TE); Pulse Ox 97% on R/A; Pain 10/10; ar3 17:27 Body Mass Index 16.74 (54.43 kg, 180.34 cm) [employer] [facility] Vitals: 17:27 Log In Time: October 03, 2016 at 17:25. b ED Course: 17:26 Patient visited by Shayy Tinoco PCA. bnb 17:26 Patient moved to Waiting bnb 17:27 Megan Panchal is Private Physician. bnb 17:28 Patient moved to Pre RCE bnb 17:28 Triage Initiated rs3 17:38 Patient moved to Triage 2 ar3 18:04 [facility] ck7 18:04 Guy Hui MD is Attending Physician. ck7 18:04 Patient visited by Merrill Tony RPA-C. ck7 18:15 Gordon Khant is Referral Physician. ck7 18:20 Patient visited by Nicole Link PCA. ar3 18:21 Patient moved to TR7 ar3 18:21 The patient / caregiver is instructed regarding the plan of care and ED course. Patient pml has correct armband on for positive identification. Bed in low position. Call light in reach. 18:21 No IV's were initiated during this patient's visit. No procedures done that require pml assistance. 18:22 Patient name changed from Km\S\\S\Kipke\S\ to Km\S\ \S\Kipke. EDMS 18:24 [facility] Payment Agreement was scanned into [employer] and attached to record. jp5 10/04 12:30 T-Sheet-- Draft Copy was scanned into [employer] and attached to record. gb Administered Medications: 10/03 18:20 Drug: traMADol 50mg- 4 pack 1 packets [tramadol 50 mg tablet (1 tabs)] {Co-Signature: pml phuongr (Constance Ross RN).} Route: PO; 18:22 Follow up: Response: Med's dispensed home pml Order Results: There are currently no results for this order. Outcome: 18:15 Discharge ordered by Provider. ck7 18:21 Discharge Assessment: Patient awake, alert and oriented x 3. No cognitive and/or pml functional deficits noted. Patient verbalized understanding of disposition instructions. Discharge Assessment: patient administered narcotics - no. The following High Risk Discharge criteria are identified: None. Discharged to home ambulatory. Condition: good Condition: stable. Discharge instructions given to patient, Instructed on discharge instructions, follow up and referral plans. medication usage, no driving heavy equipment, Demonstrated understanding of instructions, medications, Pt was receptive of discharge instructions/ teaching. Prescriptions given X 1. No special radiology studies were completed. Property sent home with patient. 18:26 Patient left the ED. pml Signatures: Dispatcher [employer] EDID Izabel Sigala, Reg Reg gb Tamara MannRN RN rs3 Nicole Link, REPAIRER ENGINE PRODUCTION REPAIRER ENGINE PRODUCTION ar3 Zayra Garcia RN RN Merrill Valentine, RPA-C RPA-Cck7 Neftali Gonzalez jp5 Shayy Tinoco, REPAIRER ENGINE PRODUCTION REPAIRER ENGINE PRODUCTION bnb Constance Ross RN jjjames Chart Complete MTDD
--- NOTE | 2016-10-05 19:27 | EDDOCDS ---
Physician Documentation [facility] Name: Km Reinoso Age: 26 yrs Sex: Male : 1990 Arrival Date: 10/03/2016 Time: 17:25 Bed TR7 Private MD: Megan Panchal J Disposition: 10/03/16 18:15 Discharged to Home/Self Care. Impression: Other acute postprocedural pain - DENTAL EXTRACTION. - Condition is Stable. - Discharge Instructions: Dental Pain. - Medication Reconciliation, Local Pharmacy Hours form. - Follow up: Your, Dentist; When: Tomorrow; Reason: Recheck today's complaints, Continuance of care. - Problem is new. - Symptoms have improved. - Notes: CONTINUE WITH THE CLINDAMYCIN, USE ULTRAM INSTRUCTED, FOLLOW UP WITH YOUR ORAL SURGEON TOMORROW Historical: - Allergies: Amoxicillin (Rash); PENICILLINS (Rash); - Home Meds: 1. clindamycin HCl 300 mg Oral cap every 6 hours 2. Triumeq 600-50-300 mg oral tab 1 tab once daily for HIV Infection - PMHx: HIV; - PSHx: none; - Social history: Smoking status: Patient uses tobacco products, light tobacco smoker. No barriers to communication noted, The patient speaks fluent Persian. - Family history: Not pertinent. - : The pt / caregiver states he / she is not on anticoagulants. Home medication list is obtained from the patient. - Exposure Risk Screening:: None identified. Vital Signs: 10/03 17:27 BP 128 / 76 RA Sitting (auto/reg); Pulse 119; Resp 18; Temp 97.1(O); Pulse Ox 98% on bnb R/A; Weight 54.43 kg / 120 lbs; Height 5 ft. 11 in. (180.34 cm); Pain 10/10; 18:19 BP 119 / 76; Pulse 68; Resp 16; Temp 98.6(TE); Pulse Ox 97% on R/A; Pain 10/10; ar3 17:27 Body Mass Index 16.74 (54.43 kg, 180.34 cm) bnb MDM: 18:15 Recheck Vital Signs, perform reassessment and enter into [employer] ordered. ck7 18:15 traMADol 50mg- 4 pack 1 packets PO Per package directions; Dispense with patient. Take ck7 per package instructions. ordered. 18:24 [facility] Payment Agreement was scanned into [employer] and attached to record. jp5 18:24 Financial registration complete. jp5 10/04 12:30 T-Sheet-- Draft Copy was scanned into [employer] and attached to record. gb Administered Medications: 10/03 18:20 Drug: traMADol 50mg- 4 pack 1 packets [tramadol 50 mg tablet (1 tabs)] {Co-Signature: pml rainejr (Constance Ross RN).} Route: PO; 18:22 Follow up: Response: Med's dispensed home pml Signatures: Izabel Sigala, Reg Reg gb Tamara MannRN RN rs3 Zayra GarciaRN RN pml Merrill Tony, RPA-C RPA-Cck7 Neftali Gonzalez jp5 Constance injjames The chart was reviewed and I authenticate all verbal orders and agree with the evaluation and treatment provided.Attachments: 18:24 [facility] Payment Agreement jp5 10/04 12:30 T-Sheet-- Draft Copy gb Chart Complete MTDD
== END 2016-10-03 18:26 | disposition home or self-care (01) ==
LOC: M ED 17:25
DX: G89.18 Other acute postprocedural pain (principal); B20 Human immunodeficiency virus [HIV] disease; F17.200 Nicotine dependence, unspecified, uncomplicated; Z79.899 Other long term (current) drug therapy; Z88.0 Allergy status to penicillin; Z88.1 Allergy status to other antibiotic agents

== ENCOUNTER → 2016-10-06 | Outpatient (REF) | payer OTHER ==
[2016-10-06 12:48] LABS: ALBUMIN 4.1 GM/DL (3.2-5.2); ALBUMIN/GLOBULIN RATIO 1.46 (1.00-1.93); ALKALINE PHOSPHATASE 90 U/L (45-117); ALT/SGPT 25 U/L (12-78); ANION GAP 8 MEQ/L (8-16); AST/SGOT 16 U/L (15-37); BILIRUBIN,TOTAL 0.2 MG/DL (0.2-1.0); BLOOD UREA NITROGEN 13 MG/DL (7-18); CALCIUM LEVEL 8.8 MG/DL (8.5-10.1); CARBON DIOXIDE LEVEL 26 MEQ/L (21-32); CHLORIDE LEVEL 109 MEQ/L (98-107); CREATININE FOR GFR 0.91 MG/DL (0.70-1.30); GLOMERULAR FILTRATION RATE > 60.0 (>60); GLUCOSE, FASTING 80 MG/DL (70-105); SODIUM LEVEL 143 MEQ/L (136-145); TOTAL PROTEIN 6.9 GM/DL (6.4-8.2)
[2016-10-09 00:07] LABS: %CD3+CD4+CD8+ 0.4 % (Not Estab.); %CD3+CD4+CD8- 28.5 % (Not Estab.); %CD3+CD4-CD8+ 43.3 % (Not Estab.); %CD3+CD4-CD8- 3.1 % (Not Estab.); ABS CD3+CD4+CD8+ 10 /uL (Not Estab.); ABS CD3+CD4+CD8- 741 /uL (Not Estab.); ABS CD3+CD4-CD8+ 1126 /uL (Not Estab.); ABS CD3+CD4-CD8- 81 /uL (Not Estab.); CD4/CD8 NYSDOH RATIO 0.66 (Not Estab.); Eosinophils 2 % (.); HCT 42.3 % (37.5-51.0); HGB 14.4 g/dL (12.6-17.7); Monocytes 8 % (.); Neutrophils 42 % (.); WBC 5.4 x10E3/uL (3.4-10.8)
== END ==
LOC: M SFHCPLAZ 10:19
PROVIDERS: ATTEND Internal Medicine Infectious Disease
DX: B20 Human immunodeficiency virus [HIV] disease (principal); Z11.1 Encounter for screening for respiratory tuberculosis

== ENCOUNTER → 2017-04-18 | Outpatient (REF) | payer OTHER ==
[2017-04-18 12:43] LABS: ALBUMIN 4.4 GM/DL (3.2-5.2); ALBUMIN/GLOBULIN RATIO 1.57 (1.00-1.93); ALKALINE PHOSPHATASE 61 U/L (45-117); ALT/SGPT 18 U/L (12-78); ANION GAP 9 MEQ/L (8-16); AST/SGOT 17 U/L (15-37); BILIRUBIN,TOTAL 0.4 MG/DL (0.2-1.0); BLOOD UREA NITROGEN 10 MG/DL (7-18); CALCIUM LEVEL 9.1 MG/DL (8.5-10.1); CARBON DIOXIDE LEVEL 27 MEQ/L (21-32); CHLORIDE LEVEL 109 MEQ/L (98-107); CREATININE FOR GFR 0.92 MG/DL (0.70-1.30); GLOMERULAR FILTRATION RATE > 60.0 (>60); GLUCOSE, FASTING 81 MG/DL (70-105); POTASSIUM SERUM 4.3 MEQ/L (3.5-5.1); SODIUM LEVEL 145 MEQ/L (136-145); TOTAL PROTEIN 7.2 GM/DL (6.4-8.2)
[2017-04-21 00:06] LABS: %CD3+CD4+CD8+ 0.4 % (Not Estab.); %CD3+CD4+CD8- 31.2 % (Not Estab.); %CD3+CD4-CD8+ 40.7 % (Not Estab.); %CD3+CD4-CD8- 2.6 % (Not Estab.); ABS CD3+CD4+CD8+ 7 /uL (Not Estab.); ABS CD3+CD4+CD8- 562 /uL (Not Estab.); ABS CD3+CD4-CD8+ 733 /uL (Not Estab.); ABS CD3+CD4-CD8- 47 /uL (Not Estab.); CD4/CD8 NYSDOH RATIO 0.77 (Not Estab.); Eosinophils 2 % (.); HCT 41.3 % (37.5-51.0); HGB 14.1 g/dL (12.6-17.7); Monocytes 8 % (.); Neutrophils 54 % (.)
[2017-04-22 14:15] LABS: CHLAMYDIA RECTAL APTIMA Negative (Negative); GC RECTAL APTIMA Negative (Negative)
[2017-04-28 00:06] LABS: HPV BY PCR OTHER HR TYPES Positive (Negative); HPV PCR 16 Negative (Negative); HPV PCR 18 Negative (Negative)
== END ==
LOC: M SFHCPLAZ 09:22
PROVIDERS: ATTEND Internal Medicine Infectious Disease
DX: B20 Human immunodeficiency virus [HIV] disease (principal)

== ENCOUNTER → 2021-03-10 | Outpatient (CLI) | payer OTHER ==
[2021-03-10 15:54] LABS: AMORPHOUS SEDIMENT SMALL (NEGATIVE); APPEARANCE, URINE TURBID (CLEAR); BACTERIA, URINE AUTO NEGATIVE (NEGATIVE); BILIRUBIN, URINE AUTO NEGATIVE (NEGATIVE); BLOOD, URINE BLOOD NEGATIVE (NEGATIVE); CALCIUM OXALATE CRYSTALS SMALL; COLOR, URINE YELLOW (YELLOW); GLUCOSE, URINE (UA) AUTO NEGATIVE (NEGATIVE); KETONE, URINE AUTO NEGATIVE (NEGATIVE); LEUKOCYTE ESTERASE, URINE AUTO NEGATIVE (NEGATIVE); MUCUS, URINE SMALL (NEGATIVE); NITRITE, URINE AUTO NEGATIVE (NEGATIVE); PROTEIN, URINE AUTO NEGATIVE (NEGATIVE); RBC, URINE AUTO 0 /HPF (0-3); SPECIFIC GRAVITY URINE AUTO 1.023 (1.002-1.035); SQUAMOUS EPITHELIAL CELL UR AU 0 /HPF (0-6); UROBILINOGEN, URINE AUTO 0.2 mg/dL (0.0-2.0); WBC, URINE AUTO 1 /HPF (0-3)
[2021-03-10 16:24] LABS: ALBUMIN 4.4 GM/DL (3.2-5.2); ALT/SGPT 29 U/L (12-78); BILIRUBIN,TOTAL 0.6 MG/DL (0.2-1.0); BLOOD UREA NITROGEN 11 MG/DL (7-18); CALCIUM LEVEL 9.3 MG/DL (8.5-10.1); CARBON DIOXIDE LEVEL 28 MEQ/L (21-32); CHLORIDE LEVEL 110 MEQ/L (98-107); CHOLESTEROL LEVEL 142 MG/DL (<200); CHOLESTEROL RISK RATIO 3.837 (<5); CREATININE FOR GFR 0.98 MG/DL (0.70-1.30); GLOMERULAR FILTRATION RATE > 60.0 (>60); GLUCOSE, FASTING 81 MG/DL (70-100); HDL CHOLESTEROL 37 MG/DL (>40); LDL CHOLESTEROL 91 MG/DL (<100); NON-HDL-C 105 MG/DL; POTASSIUM SERUM 4.5 MEQ/L (3.5-5.1); SODIUM LEVEL 141 MEQ/L (136-145); TOTAL PROTEIN 7.6 GM/DL (6.4-8.2); TRIGLYCERIDES LEVEL 72 MG/DL (<150)
[2021-03-11 12:44] LABS: GC DNA AMPLIFICATION NEGATIVE (NEGATIVE)
[2021-03-12 01:06] LABS: % CD8 Pos Lymph 37.7 % (12.0-35.5); %CD4 Pos Lymphs 37.2 % (30.8-58.5); ABS Eosinophils 0.1 x10E3/uL (0.0-0.4); ABS Monocytes 0.5 x10E3/uL (0.1-0.9); ABS Neutophils 2.9 x10E3/uL (1.4-7.0); Abs CD4 Helper 744 /uL (359-1519); Abs CD8 Suppres 754 /uL (109-897); CD4/CD8 Ratio 0.99 (0.92-3.72); Eosinophils 2 % (Not Estab.); HCT 44.6 % (37.5-51.0); HGB 15.1 g/dL (13.0-17.7); HIV-1 RNA PCR QUANT 2 LC550285 160 copies/mL (.); HIV-1 RNA PCR QUANT 3 LC550285 2.204 (.); Immature Grans 0 % (Not Estab.); Lymphocytes 36 % (Not Estab.); MCH 33.1 pg (26.6-33.0); MCHC 33.9 g/dL (31.5-35.7); MCV 98 fL (79-97); Monocytes 9 % (Not Estab.); Neutrophils 52 % (Not Estab.); Platelets 192 x10E3/uL (150-450); RBC 4.56 x10E6/uL (4.14-5.80); RDW 12.4 % (11.6-15.4); WBC 5.5 x10E3/uL (3.4-10.8)
[2021-03-13 04:08] LABS: CHLAMYDIA PHARYNGEAL APTIMA Negative (Negative); GC PHARYNGEAL APTIMA Negative (Negative)
[2021-03-13 08:09] LABS: CHLAMYDIA RECTAL APTIMA Negative (Negative); GC RECTAL APTIMA Negative (Negative)
== END ==
LOC: M PLALAB 09:35
PROVIDERS: ATTEND Internal Medicine Infectious Disease
DX: B20 Human immunodeficiency virus [HIV] disease (principal); Z11.3 Encounter for screening for infections with a predominantly sexual mode of transmission

== ENCOUNTER 2022-12-05 01:28 | Emergency (ER) | payer SELFPAY ==
[~2022-12-05] VITALS: Ht 177.8 cm; Wt 59.0 kg
[2022-12-05] MEDS ORDERED: BICT1TAB2 PO (01:58)
[2022-12-05 07:24] LABS: BASO % 0.2 % (0.0-1.0); EOS # 0.1 10^3/uL (0.0-0.5); EOS % 1.1 % (0.0-3.0); HEMATOCRIT 41.8 % (42.0-52.0); HEMOGLOBIN 14.2 g/dl (13.5-17.5); LYMPH # 2.4 10^3/uL (1.5-5.0); MEAN CORPUSCULAR HEMOGLOBIN 32.2 pg (27.0-33.0); MEAN CORPUSCULAR VOLUME 94.8 fl (80.0-96.0); MONO # 0.5 10^3/uL (0.0-0.8); MONO % 5.4 % (2.0-8.0); NEUTROPHILS # 6.9 10^3/uL (1.5-8.5); PLATELET COUNT, AUTOMATED 211 10^3/uL (150-450); RED BLOOD COUNT 4.41 10^6/uL (4.30-6.10)
[2022-12-05] MEDS ORDERED: ISOVUE-370 76% 100ML VIAL As Ordered ONE (07:43)
[2022-12-05] MEDS ORDERED: CLINDAMYCIN 900 MG in IV 1 EA IV ONE (08:15)
[2022-12-05] MEDS ORDERED: LIDOCAINE W/EPINEPHRINE 1% 20ML VIAL SC ONE (09:05)
[2022-12-05] MEDS ORDERED: MUPI30CR TOP ×2 (09:07→09:40)
[2022-12-05] MEDS ORDERED: CLEO300C2 PO ×2 (09:07→09:40)
[2022-12-05] MEDS ORDERED: KETOROLAC 30 MG/ML 1ML VIAL IV ONE (10:05)
[2022-12-05 10:08] VITALS: BP 138/79
== END 2022-12-05 10:20 | disposition home or self-care (01) ==
LOC: M ED 01:28
DX: L03.211 Cellulitis of face (principal); J02.0 Streptococcal pharyngitis; B20 Human immunodeficiency virus [HIV] disease; F17.200 Nicotine dependence, unspecified, uncomplicated; Z88.0 Allergy status to penicillin
CPT/HCPCS: 10060; 70491; 80047; 85025; 87040; 87880; 96365; 96375; 99284; J1885; Q9967; S0077